=== PATIENT | male | born 1995 | race Caucasian/White ===

== ENCOUNTER 2025-07-30 22:47 | Observation (INO) | payer BC ==
[~2025-07-30] VITALS: Ht 182.9 cm; Wt 111.0 kg
[2025-07-31] MEDS ORDERED: ISOVUE-370 76% 100 ML VIAL As Ordered ONE (04:45)
[2025-07-31] MEDS: KETOROLAC 30 MG/ML 1 ML VIAL IV ONE (05:05)
[2025-07-31 05:16] LABS: BASO # 0.1 10^3/uL (0.0-0.2); BASO % 1.0 % (0.0-1.0); EOS # 0.2 10^3/uL (0.0-0.5); EOS % 2.1 % (0.0-3.0); LYMPH # 3.1 10^3/uL (1.5-5.0); LYMPH % 44.4 % (24.0-44.0); MONO # 0.6 10^3/uL (0.0-0.8); MONO % 8.4 % (2.0-8.0); NEUTROPHILS # 3.1 10^3/uL (1.5-8.5); NEUTROPHILS % 43.7 % (36.0-66.0); PLATELET COUNT, AUTOMATED 264 10^3/uL (150-450)
[2025-07-31 05:47] LABS: C REACTIVE PROTEIN QUANTITATIV 2.70 MG/DL (<1.0)
[2025-07-31] MEDS ORDERED: HOME MED LIST COMPLETE! XX SCH (12:20)
[2025-07-31] MEDS: CEFEPIME HCL 2 GM in DEXTROSE 5% (D5W) ADV/MINI-BAG 50 ML IV ONE (14:30)
[2025-07-31] MEDS ORDERED: ACETAMINOPHEN 325 MG TAB PO PRN (14:30)
[2025-07-31] MEDS ORDERED: traMADol 50 MG TAB PO PRN (14:30)
[2025-07-31] MEDS ORDERED: NICOTINE POLACRILEX 2 MG GUM PO PRN (15:00)
[2025-07-31] MEDS: ENOXAPARIN 40 MG/0.4 ML SYRINGE (J1650 PER 10MG) SC SCH (15:06)
[2025-07-31] MEDS: KETOROLAC 30 MG/ML 1 ML VIAL IV SCH (15:07)
[2025-07-31 15:39] LABS: ALT/SGPT 60 U/L (7.0-40); AST/SGOT 36 U/L (<34); CALCIUM LEVEL 8.8 MG/DL (8.5-10.1); CARBON DIOXIDE LEVEL 24 MMOL/L (20-31); CHLORIDE LEVEL 106 MMOL/L (98-107); CHOLESTEROL LEVEL 129 MG/DL (<200); CHOLESTEROL RISK RATIO 6.23 (<5); CREATININE FOR GFR 0.83 MG/DL (0.70-1.30); GLOMERULAR FILTRATION RATE > 90.0 (>60); LDL CHOLESTEROL 74.1 MG/DL (<100); NON-HDL-C 108.3 MG/DL; POTASSIUM SERUM 4.0 MMOL/L (3.5-5.1); SODIUM LEVEL 142 MMOL/L (136-145); TRIGLYCERIDES LEVEL 171 MG/DL (<150)
[2025-07-31 15:39] LABS: PLATELET COUNT, AUTOMATED 250 10^3/uL (150-450)
[2025-07-31 15:58] LABS: ESTIMATED AVERAGE GLUCOSE 97.0 MG/DL (60-110)
[2025-07-31 16:19] LABS: ALT/SGPT 55 U/L (7.0-40); AST/SGOT 32 U/L (<34); CALCIUM LEVEL 9.0 MG/DL (8.5-10.1); CARBON DIOXIDE LEVEL 24 MMOL/L (20-31); CHLORIDE LEVEL 107 MMOL/L (98-107); CREATININE FOR GFR 0.76 MG/DL (0.70-1.30); GLOMERULAR FILTRATION RATE > 90.0 (>60); POTASSIUM SERUM 4.0 MMOL/L (3.5-5.1); SODIUM LEVEL 143 MMOL/L (136-145)
[2025-07-31 16:21] VITALS: BP 148/82; TEMP 98.8; O2SAT 97
[2025-07-31 19:34] VITALS: BP 150/79; TEMP 97.3; O2SAT 98
[2025-07-31 20:35] VITALS: TEMP 98.3
[2025-07-31] MEDS: PIPERACILLIN/TAZOBACTAM SOD 3.375 GM in DEXTROSE 5% (D5W) ADV/MINI-BAG 50 ML IV SCH (20:41)
[2025-08-01 04:18] VITALS: BP 111/64; TEMP 97.7; O2SAT 96
[2025-08-01 06:25] VITALS: TEMP 97.9
[2025-08-01] MEDS ORDERED: LIDOCAINE W/EPINEPHrine 1% 20 ML VIAL SC SCH (07:35)
[2025-08-01] MEDS ORDERED: ACET32TAB PO (09:46)
[2025-08-01] MEDS ORDERED: METR-265 PO (09:46)
[2025-08-01] MEDS ORDERED: CIPR250T3 PO (09:46)
== END 2025-08-01 10:48 | disposition home or self-care (01) ==
LOC: M ED 22:47 → M ED INP 22:48 → M MSPAV 07-31 16:07
PROVIDERS: ADMIT Internal Medicine; ATTEND Internal Medicine
DX: L02.215 Cutaneous abscess of perineum (principal); L03.315 Cellulitis of perineum; F17.290 Nicotine dependence, other tobacco product, uncomplicated; R91.8 Other nonspecific abnormal finding of lung field; N43.3 Hydrocele, unspecified; K76.0 Fatty (change of) liver, not elsewhere classified
CPT/HCPCS: 36415; 74177; 76870; 80047; 80053; 80061; 83036; 83605; 84145; 85025; 85027; 86140; 87040; 87641; 93976; 96365; 96366; 96367; 96372; 96375; 96376; 99285; J0692; J1650; J1885; J2543; Q9967